=== PATIENT | male | born 1975 | race Hispanic/Latino ===

== ENCOUNTER 2021-02-23 11:45 | Emergency (ER) | payer OTHER ==
--- NOTE | 2021-02-23 12:10 | ERPHSYRPT ---
- History of Present Illness Historian: patient, family Exam Limitations: no limitations, language barrier Patient Subjective Stated Complaint: " I have been having these pains for 2 weeks and last night they got really bad. I feel like the pain radiates from my belly to my back. I am scheduled for tests on Monday but my pain has got really bad. " Triage Nursing Assessment: Pt presents to ER with complains of RUQ abdominal pains that radiate to right lower back. He states pains have been present x 2 weeks and were radiating into right shoulder and then sometimes into LUQ. Pt complains of pain 7/10 scale. Pt is alert and oriented x3. Skin is pink, warm, and dry. Pt denies nausea, vomiting, or diarrhea. Pt respirations are unlabored at this time. Pt is scheduled for gallbladder ultrasound on Monday. Timing/Duration: week(s) (2), intermittent Activities at Onset: none Quality: cramping Abdominal Pain Onset Location: RUQ Pain Radiation: epigastric, back Severity of Pain-Max: moderate Severity of Pain-Current: mild Modifying Factors: Improves With: nothing Associated Symptoms: denies symptoms Previous symptoms: recently seen, other (Within the past 2 weeks or so has been found to have a marked leukocytosis c/w some type of leukemia, just saw Dr. Scarlet Candelaria today for the first time. Since the symptoms sound like biliary colic, Dr. Porras has seen him and ordered a RUQ US, and likely a HIDA scan to follow. ) Allergies/Adverse Reactions: No Known Drug Allergies Allergy (Verified 02/23/21 12:01) Home Medications: Semaglutide [Ozempic] 1 dose SQ WEEKLY 02/23/21 [History] Hx Tetanus, Diphtheria Vaccination/Date Given: No Hx Influenza Vaccination/Date Given: No Hx Pneumococcal Vaccination/Date Given: No Immunizations Up to Date: No Travel Risk - International Travel Have you traveled outside of the country in past 3 weeks: No - Coronavirus Screening Are you exhibiting any of the following symptoms?: No Close contact with a COVID-19 positive Pt in past 14-21 Days: No - Vaccine Status Have you recieved a Covid-19 vaccination: Yes 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 - Vaccination Dates Date of 2cond Vaccination (if applicable): unknown - Past Medical History Pertinent Past Medical History: Yes Endocrine Medical History: Diabetes Type II - Past Surgical History Past Surgical History: No - Social History Smoking Status: Never smoker Exposure to second hand smoke: No Drug Use: none Patient Lives Alone: No - Nursing Vital Signs Nursing Vital Signs: Initial Vital Signs Temperature 97.1 F 02/23/21 11:50 Pulse Rate 84 02/23/21 11:50 Respiratory Rate 18 02/23/21 11:50 Blood Pressure 152/97 02/23/21 11:50 O2 Sat by Pulse Oximetry 97 02/23/21 11:50 Pain Scale Pain Intensity [Right Back] 7 Pain Intensity 0 - Physical Exam SpO2: 97 - Course Nursing assessment & vital signs reviewed: Yes - CT Exams Abdomen/Pelvis CT Interpretation: Tele-radiologist Report, Other (No acute GI pathology. Some changes in the lung bases, but patient recently had a CTA of the chest at [facility] that was negative.) Ordered Tests: Active Orders 24 hr Category Date Time Status ABDOMEN AND PELVIS W CONTRAST [CT] Stat Exams 02/23/21 12:59 Completed CMP Stat Lab 02/23/21 12:43 Completed Medication Summary Discontinued Medications Generic Name Dose Route Start Last Admin Trade Name Thomas PRN Reason Stop Dose Admin Morphine Sulfate 4 mg 02/23/21 13:23 02/23/21 13:31 Morphine Sulfate 4 Mg/Ml Injection IV 02/23/21 13:24 4 mg STAT ONE Administration Morphine Sulfate Confirm 02/23/21 13:27 Morphine Sulfate 4 Mg/Ml Injection Administered 02/23/21 13:28 Dose 4 mg .ROUTE .STK-MED ONE Ondansetron HCl 4 mg 02/23/21 13:23 02/23/21 13:28 Ondansetron Hcl 4 Mg/2 Ml Vial IV 02/23/21 13:24 4 mg STAT ONE Administration Ondansetron HCl Confirm 02/23/21 13:26 Ondansetron Hcl 4 Mg/2 Ml Vial Administered 02/23/21 13:27 Dose 4 mg .ROUTE .STK-MED ONE Lab/Rad Data: Laboratory Result Diagrams 02/23/21 12:43 Laboratory Results 02/23/21 Range/Units 12:43 Sodium 138 (137-145) mmol/L Potassium 4.1 (3.5-5.1) mmol/L Chloride 99 (98-107) mmol/L Carbon Dioxide 29 (22-30) mmol/L Anion Gap 14.5 (5-15) MEQ/L BUN 13 (9-20) mg/dL Creatinine 0.82 (0.66-1.25) mg/dL Estimated GFR > 60.0 ML/MIN Glucose 103 (74-106) mg/dL Calcium 10.2 (8.4-10.2) mg/dL Total Bilirubin 0.80 (0.2-1.3) mg/dL AST 38 (17-59) U/L ALT 45 (0-50) U/L Alkaline Phosphatase 104 (38-126) U/L Serum Total Protein 7.5 (6.3-8.2) g/dL Albumin 4.4 (3.5-5.0) g/dL - Progress Progress: improved Progress Note: 02/23/21 14:46 The patient has an apparent leukemia which is just now being more formally analyzed by the hem-onc DrOlegario Unclear if the abdominal pain is related to that or not, sounds more like biliary colic. Dr. Porras has ordered a work-up for that. We did not repeat the CBC today, already known to have WBC count over 50K with blasts. Normal WBC and platelets. We just checked CMP today, normal. The pain does not seem very significant. Low fat and low acid diet, antacids OK, complete the GB testing. Discussed with : Lakeshia Will see patient in: office Counseled pt/family regarding: lab results, diagnosis, need for follow-up, rad results - Departure Departure Disposition: Home Clinical Impression: Biliary colic, Blood disorder Condition: Stable Critical Care Time: No Referrals: CELENA PORRAS [Primary Care Provider] - Follow up/PCP as directed Instructions: Acute Abdomen (Belly Pain), Adult (DC) Additional Instructions: Follow up with the blood specialist as planned. Complete the tests ordered by Dr. Porras. OTC med as helpful. Antacids might help.
[2021-02-23 12:54] LABS: ALBUMIN 4.4 g/dL (3.5-5.0); ALKALINE PHOSPHATASE 104 U/L (38-126); ANION GAP 14.5 MEQ/L (5-15); BLOOD UREA NITROGEN 13 mg/dL (9-20); CHLORIDE 99 mmol/L (98-107); Calcium 10.2 mg/dL (8.4-10.2); Carbon Dioxide 29 mmol/L (22-30); Creatinine 1 0.82 mg/dL (0.66-1.25); EST GLOMERULAR FILTRATION RATE > 60.0 ML/MIN; Glucose 103 mg/dL (74-106); Potassium 4.1 mmol/L (3.5-5.1); SGOT/AST 38 U/L (17-59); SGPT/ALT 45 U/L (0-50); SODIUM 138 mmol/L (137-145); Total Protein 7.5 g/dL (6.3-8.2)
[2021-02-23] MEDS ORDERED: MORPHINE SULFATE 4 MG INJ IV ONE (13:23)
[2021-02-23] MEDS ORDERED: Zofran 4 MG/2 ML VIAL IV ONE (13:23)
[2021-02-23] MEDS ORDERED: Zofran 4 MG/2 ML VIAL ONE (13:26)
[2021-02-23] MEDS ORDERED: MORPHINE SULFATE 4 MG INJ ONE (13:27)
--- NOTE | 2021-02-23 14:06 | XRAY ---
Indication: Right upper quadrant pain 2 weeks. Multiple contiguous axial images obtained through the abdomen and pelvis using 80 cc Isovue 370 contrast. Comparison: None Lung bases demonstrates pulmonary emphysema with mild scattered peripheral fibrosis/scarring. No infiltrate or effusion. Heart is not enlarged. Noncontrasted stomach and bowel loops appear nonobstructed with normal appendix. Mild diffuse scattered colonic fecal debris throughout greatest in the ascending and transverse colon. Mild sigmoid diverticulosis. No free fluid/air. Mild diffuse fatty liver and 14.4 cm splenomegaly. Remaining liver, gallbladder, pancreas, spleen, adrenal glands, kidneys, ureters, bladder, and aorta are unremarkable. No pathologic retroperitoneal lymphadenopathy. Osseous structures intact with mild degenerative changes throughout the thoracolumbar spine. Small fatty left inguinal hernia. Impression: 1. Mild pulmonary emphysema, diffuse fecal stasis, sigmoid diverticulosis, fatty liver, splenomegaly, small fatty left inguinal hernia, and chronic bony findings. 2. Remaining CT abdomen/pelvis with contrast exam is negative.
[2021-02-23 14:30] VITALS: BP 122/76; PULSE 77; O2SAT 97
== END 2021-02-23 14:44 | disposition home or self-care (01) ==
LOC: ED 11:45
DX: K80.50 Calculus of bile duct without cholangitis or cholecystitis without obstruction (principal); D75.9 Disease of blood and blood-forming organs, unspecified; E11.9 Type 2 diabetes mellitus without complications; Z79.899 Other long term (current) drug therapy
CPT/HCPCS: 36415; 74177; 80053; 96374; 96375; 99284; J2270; J2405